=== PATIENT | male | born 1955 | race Caucasian/White ===

== ENCOUNTER 2018-01-19 12:04 | Emergency (ER) | payer BC ==
--- NOTE | 2018-01-19 12:43 | EDM.PDOC ---
ED HPI GENERAL MEDICAL PROBLEM - General Chief Complaint: Skin Complaint Stated Complaint: RIGHT LEG PAIN Time Seen by Provider: 01/19/18 12:08 Source of Information: Reports: Patient History Limitations: Reports: No Limitations - History of Present Illness INITIAL COMMENTS - FREE TEXT/NARRATIVE: HISTORY AND PHYSICAL: History of present illness: Patient is a 62-year-old male who presents to the emergency room today with complaints of right lower extremity pain, swelling and redness. Patient reports that on 01/16/2018 he ate some food at a local restaurant and soon after started having chills and tremors. He was concerned that he was having an allergic reaction to an exposure to shellfish (as he has an allergy to shellfish). Since that time he has had mild redness and swelling to the right lower extremity. Noticed yesterday afternoon that the leg was "double in size" and had some pain with ambulation. In 2003 he had a traumatic injury to his right lower extremity and states that "there were some vascular involvement"to that leg. Has had 2 episodes of cellulitis to the right lower extremity which has caused him to have admissions both times. Review of systems: As per history of present illness and below otherwise all systems reviewed and negative. Past medical history: As per history of present illness and as reviewed below otherwise noncontributory. Surgical history: As per history of present illness and as reviewed below otherwise noncontributory. Social history: No reported history of drug or alcohol abuse. Family history: As per history of present illness and as reviewed below otherwise noncontributory. Physical exam: General: Well-developed and well-nourished 62-year-old male. Alert and oriented. Nontoxic appearing and in no acute distress. HEENT: Atraumatic, normocephalic, pupils reactive, negative for conjunctival pallor or scleral icterus, mucous membranes moist, throat clear, neck supple, nontender, trachea midline. Lungs: Clear to auscultation, breath sounds equal bilaterally, chest nontender. Heart: S1S2, regular, negative for clicks, rubs, or JVD. Abdomen: Soft, nondistended, nontender. Negative for masses or hepatosplenomegaly. Negative for costovertebral tenderness. Pelvis: Stable nontender. Genitourinary: Deferred. Rectal: Deferred. Extremities: Atraumatic, moves all extremities per self without difficulty or deficits. Right lower extremity calf size is greater than left. Erythema and warmth to touch noted to the right lower extremity. Skin is intact and dry. Does have a circular patch (palm size) of psoriasis noted to left plunkett. Neurovascular unremarkable. Neuro: Awake, alert, oriented. Cranial nerves II through XII unremarkable. Cerebellum unremarkable. Motor and sensory unremarkable throughout. Exam nonfocal. Dr Brizuela was involved in this case. Discussed with patient the likelihood of this being an allergic reaction is minimal. His symptoms of chills and tremors is likely due to the infection that may be going in his right lower extremity. Requested that we do labs, x-ray and ultrasound to rule out DVT vs infection. We did discuss pending admission at this time. Patient states that he would like to go to [place], [place] - as he states his insurance coverage is better there due to a family member being employeed at their facility. He wants to go by private vehicle (declines EMS transport). Patient continues to state that if labs, x-rays and ultrasound were to be done here he would prefer to "just go straight to [place] instead...they would probably repeat it all anyway". We discussed risks of leaving the hospital, including serious injury or even . Patient states that his is here in the waiting room and he would like to sign out AGAINST MEDICAL ADVICE and drive directly to [place]. Diagnostics: Declined Therapeutics: [] Impression: DVT versus cellulitis, right lower extremity Plan: Signed out AGAINST MEDICAL ADVICE Definitive disposition and diagnosis as appropriate pending reevaluation and review of above. Duration: Day(s): Location: Reports: Lower Extremity, Right right leg Pain Score (Numeric/FACES): 8 - Related Data Allergies Allergy/AdvReac Type Severity Reaction Status Date / Time azithromycin Allergy Hives Verified 01/19/18 12:17 Home Meds: Home Meds . [No Known Home Meds] 01/19/18 [History] ED ROS GENERAL - Review of Systems Review Of Systems: ROS reveals no pertinent complaints other than HPI. ED EXAM, SKIN/RASH Exam: See Below Course - Vital Signs Last Recorded V/S: Last Vital Signs Temp 96.7 F 01/19/18 12:17 Pulse 90 01/19/18 12:17 Resp 18 01/19/18 12:17 BP 125/68 01/19/18 12:17 Pulse Ox 98 02/21/18 12:17 Departure - Departure Time of Disposition: 12:44 Disposition: Against Medical Advice 07 Clinical Impression: Swelling of lower extremity - Discharge Information Referrals: PCP,None [Primary Care Provider] -
== END 2018-01-19 12:36 | disposition left against medical advice (07) ==
LOC: MW.ED 12:04
DX: R22.41 Localized swelling, mass and lump, right lower limb (principal); Z88.1 Allergy status to other antibiotic agents; Z91.013 Allergy to seafood
CPT/HCPCS: 99282; 99283